=== PATIENT | male | born 1995 | race Caucasian/White ===

== ENCOUNTER 2024-03-20 23:26 | Emergency (ER) | payer BC ==
[~2024-03-20] VITALS: Ht 175.3 cm; Wt 86.4 kg
[2024-03-20 23:31] VITALS: TEMP 99.7
[2024-03-20] MEDS ORDERED: Acetaminophen 500 MG TAB PO ONE (23:45)
[2024-03-20] MEDS ORDERED: Ibuprofen 400 MG TAB PO ONE (23:45)
[2024-03-21 00:26] LABS: STREP A POSITIVE
[2024-03-21] MEDS ORDERED: Penicillin G Benz 1,200,000 UNITS/2 ML SYRINGE IM ONE (00:45)
[2024-03-21] MEDS ORDERED: NS 1,000 ML IV ONE (00:45)
[2024-03-21 01:58] VITALS: BP 149/81; PULSE 112
== END 2024-03-21 02:07 | disposition home or self-care (01) ==
LOC: COL.ER 23:26
PROVIDERS: Nurse Practitioner Primary Care
DX: J03.00 Acute streptococcal tonsillitis, unspecified (principal)
CPT/HCPCS: J0561; J7030